=== PATIENT | male | born 1955 | race Caucasian/White ===

== ENCOUNTER 2020-07-09 12:17 | Emergency (ER) | payer OTHER ==
[~2020-07-09] VITALS: Ht 172.7 cm; Wt 98.0 kg
[2020-07-09 12:53] LABS: BASOPHILS ABSOLUTE AUTO 0.09 K/mm3 (0.00-0.23); BASOPHILS PERCENT AUTO 1 % (0-2); EOSINOPHILS ABSOLUTE AUTO 0.58 K/mm3 (0.00-0.68); EOSINOPHILS PERCENT AUTO 5 % (0-6); Hematocrit 43.5 % (37.0-53.0); Hemoglobin 15.1 g/dL (13.5-17.5); IMMATURE GRAN ABSOLUTE AUTO 0.04 K/mm3 (0.00-0.10); IMMATURE GRAN PERCENT AUTO 0 % (0-1); LYMPHOCYTES PERCENT AUTO 22 % (21-46); MONOCYTES ABSOLUTE AUTO 0.95 K/mm3 (0.16-1.47); MONOCYTES PERCENT AUTO 9 % (4-13); Mean Corpuscular HGB Conc 34.7 g/dL (31.5-36.5); Mean Corpuscular Volume 95 fL (80-100); Mean Platelet Volume 10.3 fL (9.1-12.4); NEUTROPHILS PERCENT AUTO 63 % (41-73); Platelet Count 237 K/mm3 (150-400); RDW Coefficient Variation 13.2 % (11.7-14.2); RDW Standard Deviation 46.1 fL (35.1-46.3); Red Blood Cell Count 4.58 M/mm3 (4.30-5.90); White Blood Cell Count 10.66 K/mm3 (4.00-11.30)
[2020-07-09 13:15] LABS: Alanine Aminotransfer (ALT/SGP 46 U/L (12-78); Albumin, Blood 3.9 g/dL (3.4-5.0); Alk Phos 74 U/L (50-136); Anion Gap 5 mmol/L (6-16); Aspartate Aminotrans (AST/SGOT 28 U/L (12-37); Bilirubin, Total 0.6 mg/dL (0.1-1.0); Blood Urea Nitrogen 10 mg/dL (8-24); Bun/Creatinine Ratio 12.9 (12.0-20.0); CO2, Blood 28 mmol/L (21-32); Calcium, Blood 8.7 mg/dL (8.5-10.1); Chloride, Blood 108 mmol/L (98-108); Creatinine, Blood 0.78 mg/dL (0.60-1.20); Globulin, Blood 4.1 g/dL (2.2-4.0); Glomerular Filtration Rate >60 (60-); Glucose, Blood 98 mg/dL (70-99); Potassium, Blood 3.8 mmol/L (3.5-5.5); Sodium, Blood 141 mmol/L (136-145); Troponin I <0.015 ng/mL (0.000-0.040)
[2020-07-09] MEDS ORDERED: ALBU90OI (14:16)
[2020-07-09] MEDS ORDERED: ATOR20 PO (14:17)
[2020-07-09] MEDS ORDERED: AMLODIPINE BESY10 MG PO (14:17)
[2020-07-09] MEDS ORDERED: DESO.05TL (14:18)
[2020-07-09] MEDS ORDERED: KETO15TC (14:20)
[2020-07-09] MEDS ORDERED: FLUT.05NI (14:20)
[2020-07-09] MEDS ORDERED: GABA300 PO (14:20)
[2020-07-09] MEDS ORDERED: LOPE2C (14:21)
[2020-07-09] MEDS ORDERED: MESA250ER (14:23)
[2020-07-09] MEDS ORDERED: OMEP20ER PO (14:23)
[2020-07-09] MEDS ORDERED: Flomax0.4 MG PO (14:24)
[2020-07-09] MEDS ORDERED: SYMBICORT 16010.2 GM INH (15:10)
[2020-07-09] MEDS ORDERED: METPRE4DP PO (15:10)
== END 2020-07-09 15:30 | disposition home or self-care (01) ==
LOC: ER 12:17
PROVIDERS: Emergency Medicine
DX: J44.1 Chronic obstructive pulmonary disease with (acute) exacerbation (principal); Z87.891 Personal history of nicotine dependence; Z79.899 Other long term (current) drug therapy
CPT/HCPCS: 71046; 80053; 83880; 84484; 85025; 93005; 93010; 96374; 99285-25; J2930

== ENCOUNTER 2020-07-15 21:15 | Emergency (ER) | payer OTHER ==
[~2020-07-15] VITALS: Ht 172.7 cm; Wt 98.0 kg
[~2020-07-15 21:15] MED LIST: ALBU90OI; AMLODIPINE BESY10 MG PO; ATOR20 PO; DESO.05TL; FLUT.05NI; Flomax0.4 MG PO; GABA300 PO; KETO15TC; LOPE2C; MESA250ER; METPRE4DP PO; OMEP20ER PO; SYMBICORT 16010.2 GM INH
== END 2020-07-16 00:21 | disposition home or self-care (01) ==
LOC: ER 21:15
DX: J04.0 Acute laryngitis (principal); J44.9 Chronic obstructive pulmonary disease, unspecified; E78.5 Hyperlipidemia, unspecified; Z79.51 Long term (current) use of inhaled steroids; Z79.899 Other long term (current) drug therapy; Z87.891 Personal history of nicotine dependence
CPT/HCPCS: 70490; 99284-25

== ENCOUNTER 2020-08-16 18:53 | Emergency (ER) | payer OTHER ==
[~2020-08-16] VITALS: Ht 172.7 cm; Wt 93.0 kg
[~2020-08-16 18:53] MED LIST changes: +BENADRYL25 M1 PO; +FAMO20 PO; +PRED20 PO
[2020-08-16 19:43] LABS: BASOPHILS ABSOLUTE AUTO 0.05 K/mm3 (0.00-0.23); BASOPHILS PERCENT AUTO 1 % (0-2); EOSINOPHILS ABSOLUTE AUTO 0.15 K/mm3 (0.00-0.68); EOSINOPHILS PERCENT AUTO 2 % (0-6); Hematocrit 48.7 % (37.0-53.0); Hemoglobin 16.7 g/dL (13.5-17.5); IMMATURE GRAN ABSOLUTE AUTO 0.07 K/mm3 (0.00-0.10); IMMATURE GRAN PERCENT AUTO 1 % (0-1); LYMPHOCYTES ABSOLUTE AUTO 3.14 K/mm3 (0.84-5.20); LYMPHOCYTES PERCENT AUTO 33 % (21-46); MONOCYTES ABSOLUTE AUTO 0.66 K/mm3 (0.16-1.47); MONOCYTES PERCENT AUTO 7 % (4-13); Mean Corpuscular HGB 32.2 pg (26.0-34.0); Mean Corpuscular HGB Conc 34.3 g/dL (31.5-36.5); Mean Corpuscular Volume 94 fL (80-100); Mean Platelet Volume 10.5 fL (9.1-12.4); NEUTROPHILS ABSOLUTE AUTO 5.48 K/mm3 (1.96-9.15); NEUTROPHILS PERCENT AUTO 57 % (41-73); Platelet Count 271 K/mm3 (150-400); RDW Standard Deviation 45.1 fL (35.1-46.3); Red Blood Cell Count 5.19 M/mm3 (4.30-5.90); White Blood Cell Count 9.55 K/mm3 (4.00-11.30)
[2020-08-16 20:03] LABS: Alanine Aminotransfer (ALT/SGP 50 U/L (12-78); Albumin/Globulin Ratio 1.1 (0.8-1.8); Alk Phos 72 U/L (50-136); Anion Gap 10 mmol/L (6-16); Aspartate Aminotrans (AST/SGOT 25 U/L (12-37); Bilirubin, Total 0.6 mg/dL (0.1-1.0); Blood Urea Nitrogen 22 mg/dL (8-24); Bun/Creatinine Ratio 25.4 (12.0-20.0); CO2, Blood 24 mmol/L (21-32); Calcium, Blood 9.4 mg/dL (8.5-10.1); Chloride, Blood 107 mmol/L (98-108); Creatinine, Blood 0.87 mg/dL (0.60-1.20); Globulin, Blood 3.7 g/dL (2.2-4.0); Glomerular Filtration Rate >60 (60-); Glucose, Blood 177 mg/dL (70-99); Potassium, Blood 3.5 mmol/L (3.5-5.5); Sodium, Blood 141 mmol/L (136-145); Total Protein, Blood 7.7 g/dL (6.4-8.2); Troponin I <0.015 ng/mL (0.000-0.040)
[2020-08-17] MEDS ORDERED: Prednisone20 MG PO (01:25)
[2020-08-17] MEDS ORDERED: AZIT250 PO (01:25)
== END 2020-08-17 01:41 | disposition home or self-care (01) ==
LOC: ER 18:53
PROVIDERS: Emergency Medicine
DX: J44.1 Chronic obstructive pulmonary disease with (acute) exacerbation (principal); E78.5 Hyperlipidemia, unspecified; Z79.52 Long term (current) use of systemic steroids; Z79.51 Long term (current) use of inhaled steroids; Z79.899 Other long term (current) drug therapy; Z87.891 Personal history of nicotine dependence
CPT/HCPCS: 36415; 70490; 71046; 71260; 80053; 83880; 84484; 85025; 85379; 93005; 93010; 94640; 96374; 99285-25; J0456; J2930; J7050; Q9967

== ENCOUNTER 2023-09-11 10:30 | Day surgery (SDC) | payer OTHER ==
[2023-09-11] VITALS (17 sets, daily range): BP systolic 100–138; BP diastolic 60–82
[~2023-09-11] VITALS: Ht 172.7 cm; Wt 98.1 kg
[~2023-09-11 10:30] MED LIST changes: -ALBU90OI; +ALBU90OI INH; +AZIT250 PO; +Amlodipine Bes2.5 MG PO; +DUPIXENT300 MG/21 SC; +LOPE2C PO; +OMEGA FISH OIL PO; +Prednisone20 MG PO; +Robaxin750 MG PO; +STIOLTO RESPIMAT4 G1 INH; +Triamcinolone A15 G3 TOP
--- NOTE | 2023-09-11 12:35 | NUR ---
PT HAS SCALY PATCHES ON BACK, L ARM AND L LEG. HE REPORTS SHOWING DR. NELSON AND DR. NELSON BEING OKAY TO PROCEED WITH THE PROCEDURE. DR. NELSON LOOKED AT THE LEG AND SIGNED IT IN PREOP. PT ALSO HAS A WET PRODUCTIVE COUGH THAT HE REPORTS IS DUE TO POST NASAL DRIP. HIS LUNG SOUND DIMINISHED THROUGHOUT WITH SLIGHT WHEEZES IN UPPER LOBES THAT CLEAR WITH COUGH. VERBAL ORDER FROM ANESTHESIA TO GIVE PT A DUONEB BREATHING TREATMENT IN PREOP. LUNG SOUNDS CLEAR POST BREATHING TREATMENT.
--- NOTE | 2023-09-11 13:13 | NUR ---
09/11/23 1313 Shalini Hernandes SPINAL NERVE BLOCK COMPLETED BY DR. PABON UPON ENTRY TO OR. PT TOLERATED WELL.
--- NOTE | 2023-09-11 17:15 | NUR ---
SHIFT SUMMARY PATIENT IS AOX4, POD0 FOR L TKA, AQUACEL ON KNEE C/D/I. ICE IN PLACE. SCD'S ON. PATIENT HAD SPINAL IN SURGERY AND IS AWAITING FULL SENSATION TO AMBULATE AND VOID. BLADDER SCAN OF 175 IN PACU. TOLERATING PO INTAKE. MEDICATED FOR PAIN AND TOLERATES WELL. VSS, ON 2 LNC SATS ABOVE 95%. DENIES SOB. ORIENTED TO ROOM, CALL LIGHT IN REACH.
--- NOTE | 2023-09-12 03:32 | NUR ---
SUMMARY pT AMBULATING AND VOIDING. PT DENIES N/T. SPINAL SITE NO ISSUES. PT WEARING POLAR PACK AND SCDS IN PLACE. PT PAIN MANAGED WELL. PT EATING AND DRINKING. CALL LIGHT IN REACH
--- NOTE | 2023-09-12 03:43 | NUR ---
ASSUMPTION OF CARE. RECEIVED REPORT FROM RY THOMAS. THIS RN VISUALIZED PT, PT RESTING WITH EYES CLOSED AND CALL LIGHT IN REACH.
[2023-09-12 05:05] LABS: BASOPHILS ABSOLUTE AUTO 0.02 K/mm3 (0.00-0.23); BASOPHILS PERCENT AUTO 0 % (0-2); EOSINOPHILS PERCENT AUTO 0 % (0-6); Hematocrit 42.4 % (37.0-53.0); Hemoglobin 14.6 g/dL (13.5-17.5); IMMATURE GRAN ABSOLUTE AUTO 0.04 K/mm3 (0.00-0.10); IMMATURE GRAN PERCENT AUTO 0 % (0-1); LYMPHOCYTES ABSOLUTE AUTO 1.28 K/mm3 (0.84-5.20); LYMPHOCYTES PERCENT AUTO 8 % (21-46); MONOCYTES ABSOLUTE AUTO 0.62 K/mm3 (0.16-1.47); MONOCYTES PERCENT AUTO 4 % (4-13); Mean Corpuscular HGB Conc 34.4 g/dL (31.5-36.5); Mean Corpuscular Volume 99 fL (80-100); Mean Platelet Volume 10.2 fL (9.1-12.4); NEUTROPHILS ABSOLUTE AUTO 13.75 K/mm3 (1.96-9.15); NEUTROPHILS PERCENT AUTO 88 % (41-73); Platelet Count 240 K/mm3 (150-400); Red Blood Cell Count 4.29 M/mm3 (4.30-5.90); White Blood Cell Count 15.71 K/mm3 (4.00-11.30)
[2023-09-12 05:07] VITALS: BP 113/74
[2023-09-12 05:37] LABS: Bun/Creatinine Ratio 19.8 (12.0-20.0); Calcium, Blood 8.6 mg/dL (8.5-10.1); Creatinine, Blood 0.86 mg/dL (0.60-1.20); Magnesium, Blood 2.2 mg/dL (1.6-2.4); Potassium, Blood 4.2 mmol/L (3.5-5.5)
[2023-09-12 07:31] VITALS: BP 130/80
--- NOTE | 2023-09-12 11:20 | NUR ---
DISCHARGE POD 1 L TY PT DISCHARGED AFTER CLEARING THERAPY. NO NUMBNESS OR TINGLING REPORTED. PAIN MANAGED PER EMAR. PRESCRIPTIONS SENT IN PRIOR TO SURGERY. ALL BELONINGS WITH PATIENT. INSTRUCTIONS GONE OVER WITH PATIENT AND SPOUSE. NO FURTHER QUESTIONS AT THIS TIME.
== END 2023-09-12 11:21 | disposition home or self-care (01) ==
LOC: ORSCMMR 10:30 → ORD 13:45 → ORSCMMR 13:45 → SURS 15:24 → ORSCMMR 09-12 11:21
PROVIDERS: Orthopaedic Surgery
PROC: 0SRD0JA Replacement of Left Knee Joint with Synthetic Substitute, Uncemented, Open Approach (ICD-10-PCS; principal; 2023-09-11 13:15)
DX: M17.0 Bilateral primary osteoarthritis of knee (principal); J44.9 Chronic obstructive pulmonary disease, unspecified; I10 Essential (primary) hypertension; Z87.891 Personal history of nicotine dependence; K21.9 Gastro-esophageal reflux disease without esophagitis; Z79.899 Other long term (current) drug therapy
CPT/HCPCS: 36415; 73560-LT; 80048; 83735; 85025; 94640; 94664; 94760; 97110; 97116; 97162; A9270; C1713; C1776; J0171; J0690; J0735; J1100; J1170; J1885; J2250; J2405; J2704; J2795; J3010; J7120

== ENCOUNTER 2024-07-21 16:20 | Emergency (ER) | payer OTHER ==
[~2024-07-21] VITALS: Ht 172.7 cm; Wt 102.1 kg
[2024-07-21 16:25] VITALS: BP 155/78
[2024-07-21] MEDS ORDERED: Diphth,Pertuss(Acell),Tet Vac 0.5 ML VIAL IM ONE (16:45)
[2024-07-21] MEDS ORDERED: CEPH500 PO (16:53)
== END 2024-07-21 17:16 | disposition home or self-care (01) ==
LOC: ER 16:20
DX: S61.041A Puncture wound with foreign body of right thumb without damage to nail, initial encounter (principal); W26.8XXA Contact with other sharp object(s), not elsewhere classified, initial encounter; J44.9 Chronic obstructive pulmonary disease, unspecified; Z87.891 Personal history of nicotine dependence; Z79.899 Other long term (current) drug therapy
CPT/HCPCS: 90471; 90715; 99282-25

== ENCOUNTER 2025-10-17 09:30 | Day surgery (SDC) | payer OTHER ==
[~2025-10-17] VITALS: Ht 172.7 cm; Wt 58.4 kg
[~2025-10-17 09:30] MED LIST changes: +CEPH500 PO
[2025-10-17] MEDS ORDERED: ALBU90OI (09:48)
[2025-10-17] MEDS ORDERED: NARCAN4 M1 (09:48)
[2025-10-17] MEDS ORDERED: ATOR10 (09:48)
[2025-10-17] MEDS ORDERED: BUDESONIDE0.5 MG/2 M INH (09:48)
[2025-10-17] MEDS ORDERED: STIOLTO RESPIMAT4 G1 IH (09:49)
[2025-10-17] MEDS ORDERED: TAMS.4ER (09:49)
[2025-10-17] MEDS ORDERED: Ipratropium/Albuterol SulF 2.5-0.5MG/3 ML Amp ONE (09:59)
[2025-10-17] MEDS ORDERED: Benzocaine Oral Spray 0.5ML UD ONE (09:59)
[2025-10-17 11:10] VITALS: BP 134/75
== END 2025-10-17 11:08 | disposition home or self-care (01) ==
LOC: ORSCSDS 09:30
PROVIDERS: Internal Medicine Gastroenterology
PROC: 0DB68ZX Excision of Stomach, Via Natural or Artificial Opening Endoscopic, Diagnostic (ICD-10-PCS; principal; 2025-10-17 13:15)
DX: K74.60 Unspecified cirrhosis of liver (principal); K31.7 Polyp of stomach and duodenum; K29.70 Gastritis, unspecified, without bleeding; E78.5 Hyperlipidemia, unspecified; K21.9 Gastro-esophageal reflux disease without esophagitis; J44.9 Chronic obstructive pulmonary disease, unspecified; I10 Essential (primary) hypertension; Z79.899 Other long term (current) drug therapy; Z87.891 Personal history of nicotine dependence
CPT/HCPCS: 88305; 88341; 88342; A9270; J2704; J7120